=== PATIENT | female | born 1985 | race Caucasian/White ===

== ENCOUNTER 2017-07-27 16:57 | Emergency (ER) | payer BC, MEDICAID ==
--- NOTE | 2017-07-27 17:25 | EDM.PDOC ---
ED HPI GENERAL MEDICAL PROBLEM - General Chief Complaint: Upper Extremity Injury/Pain Stated Complaint: RIGHT WRIST INJURY Time Seen by Provider: 07/27/17 17:00 Source of Information: Reports: Patient History Limitations: Reports: No Limitations - History of Present Illness INITIAL COMMENTS - FREE TEXT/NARRATIVE: 32 years old w f -not - came to the ed after she fell onto her right outstretched right wrist. Pt was not sure while she fell. No other acute medical issues. 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, Cold Therapy, NSAIDS, Splint(s) Right Wrist Pain Score (Numeric/FACES): 6 - Related Data Allergies Allergy/AdvReac Type Severity Reaction Status Date / Time promethazine [From Phenergan] Allergy Anxiety Verified 07/27/17 17:10 Sulfa (Sulfonamide Allergy Nausea and Verified 07/27/17 17:09 Antibiotics) Vomiting Home Meds: Home Meds Topiramate [Topamax] 25 mg PO TID 07/27/17 [History] Social & Family History - Tobacco Use Smoking Status *Q: Former Smoker Years of Tobacco use: 5 Used Tobacco, but Quit: Yes Month Tobacco Last Used: when she was a teenager - Caffeine Use Caffeine Use: Reports: Soda - Recreational Drug Use Recreational Drug Use: No Review of Systems - Review of Systems Review Of Systems: See Below Constitutional: Reports: No Symptoms Eyes: Reports: No Symptoms Ears: Reports: No Symptoms Nose: Reports: No Symptoms Mouth/Throat: Reports: No Symptoms Respiratory: Reports: No Symptoms Cardiovascular: Reports: No Symptoms GI/Abdominal: Reports: No Symptoms Genitourinary: Reports: No Symptoms Musculoskeletal: Reports: Hand Pain (wrist) Skin: Reports: No Symptoms Neurological: Reports: No Symptoms Psychiatric: Reports: No Symptoms ED EXAM, GENERAL - Physical Exam Exam: See Below Exam Limited By: No Limitations General Appearance: Alert, WD/WN, Mild Distress Eye Exam: Bilateral Eye: Normal Inspection Ears: Normal External Exam Ear Exam: Bilateral Ear: Auricle Normal Nose: Normal Inspection, Normal Mucosa Throat/Mouth: Normal Inspection Head: Atraumatic, Normocephalic Neck: Normal Inspection, Supple Respiratory/Chest: No Respiratory Distress Cardiovascular: Normal Peripheral Pulses Peripheral Pulses: 1+: Radial (L), Radial (R) GI/Abdominal: Normal Bowel Sounds (Female) Exam: Deferred Rectal (Female) Exam: Deferred Back Exam: Normal Inspection, Full Range of Motion Extremities: Normal Inspection, Normal Range of Motion, Non-Tender Neurological: Alert, Oriented, CN II-XII Intact, Normal Cognition, Normal Gait, No Motor/Sensory Deficits Psychiatric: Normal Affect, Normal Mood Skin Exam: Warm, Dry, Rash (hematoma r wrist) Lymphatic: No Adenopathy Course - Vital Signs Text/Narrative:: 32 years old w f -not - came to the ed after she fell onto her right outstretched right wrist. Pt was not sure while she fell. No other acute medical issues. No N/V/D or dizziness, no other injuries PE: Deforemd r wrist with hematoma Imaging: R wrist, NAD Impression: Right wrist sprain with minor hematoma Tx: Right wrist splin (valcro), Ice. Pt refused Motrin Reexam: Improved Plan: D/C with instructions Last Recorded V/S: Last Vital Signs Temp 36.6 C 07/27/17 17:55 Pulse 87 07/27/17 17:55 Resp 18 07/27/17 17:55 BP 125/78 07/27/17 17:55 Pulse Ox 100 07/27/17 17:55 - Orders/Labs/Meds Orders: Active Orders 24 hr Category Date Time Status Wrist Comp Min 3V Rt [CR] Stat Exams 07/27/17 17:23 Taken Departure - Departure Time of Disposition: 17:41 Disposition: Home, Self-Care 01 Condition: Good Clinical Impression: Sprain of wrist, right Qualifiers: Encounter type: initial encounter Qualified Code(s): S63.501A - Unspecified sprain of right wrist, initial encounter - Discharge Information Instructions: Wrist Sprain Referrals: Con Coombs MD [Primary Care Provider] - Forms: ED Department Discharge Additional Instructions: rest, ice and elevation, motrin for pain. Please wear splint, please f/u, come back if your symptoms get worse acutely - My Orders Last 24 Hours: My Active Orders 07/27/17 17:23 Wrist Comp Min 3V Rt [CR] Stat - Assessment/Plan Last 24 Hours: My Active Orders 07/27/17 17:23 Wrist Comp Min 3V Rt [CR] Stat
== END 2017-07-27 17:58 | disposition home or self-care (01) ==
LOC: FB.ED 16:57
DX: S63.501A Unspecified sprain of right wrist, initial encounter (principal); S60.211A Contusion of right wrist, initial encounter; Z87.891 Personal history of nicotine dependence; Z88.2 Allergy status to sulfonamides; Z88.8 Allergy status to other drugs, medicaments and biological substances; W19.XXXA Unspecified fall, initial encounter
CPT/HCPCS: 29125; 73110-RT; 99283